=== PATIENT | male | born 1940 | race Caucasian/White ===

== ENCOUNTER → 2020-12-01 | Outpatient (CLI) | payer MEDICARE, OTHER ==
[~2020-12-01] MED LIST: ATOR1TAB19 PO; BISO5TAB14 PO; CALC1CAP31 PO; CINA30TA4 PO; DILT240C28 PO; ISOVUE-300 61% 50ML VIAL As Ordered ONE; LIDOCAINE 1% MDV 20ML VIAL As Ordered ONE; LOSA100T50 PO; MIDAZOLAM INJ 2MG/2ML VIAL (J2250 PER 1MG) As Ordered ONE; RENATAB6 PO; WARF-18 PO; fentaNYL 100 MCG/2 ML INJECTION (J3010) As Ordered ONE
--- NOTE | 2020-12-01 13:44 | ROOPDOC ---
[facility] Report Of Operation Report of Operation DATE OF PROCEDURE: 12/01/20 PREPROCEDURE DIAGNOSES: End-stage renal disease with left Valentín fistula and increased swelling left upper extremity POSTPROCEDURE DIAGNOSES: Same PROCEDURE: 1. Ultrasound-guided access left cephalic vein 2. Left upper extremity fistulogram and central venogram 3. Angioplasty proximal left cephalic vein with 8 x 20 cutting balloon and 9 x 80 [place] balloon 4. Completion venogram SURGEON: Efe Garcia MD ANESTHESIA: Local anesthesia 5 mL lidocaine. Moderate intravenous conscious sedation was administered by Dr. Garcia. The patient was independent we monitored by registered nurse assigned to the Department of radiology using automated blood pressure, EKG, and pulse oximetry. The detailed sedation record is permanently stored in the hospital information system. The following is a brief sedation record: Start time 13:01, stop time 13:26, Versed 1 mg IV, fentanyl 50 g IV. INDICATION FOR PROCEDURE: This a very pleasant 80-year-old gentleman with end- stage renal disease on hemodialysis and a left Valentín fistula who has had increased swelling in his left upper extremity and increased pulsatility in his fistula. Risks benefits and alternatives to a fistulogram of left upper extremity and potential intervention were explained to the patient. He is agreeable to proceed. Informed consent was obtained. INTERPRETATION: 1. The AV anastomosis is widely patent on ultrasound, please see images. We examined the cephalic vein over the forearm with ultrasound. 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 2. Left upper extremity fistulogram reveals good inflow through the cephalic vein and the basilic vein at the antecubital through the upper arm. The cephalic vein in the upper arm is tortuous but widely patent. No significant stenoses is noted. No stenoses noted in the basilic vein axillary vein runoff either. At the proximal cephalic vein at the shoulder, there is a focal 95% stenosis, and some moderate 20-30% stenoses surrounding this. There is then a branch point proximal to the junction with the subclavian vein and both of the outflow cephalic veins are patent. There is good flow through the subclavian vein and no stenoses noted at the thoracic outlet. The innominate vein is widely patent with good outflow back to the heart. 3. After angioplasty of the left cephalic vein proximally at the area of heavy stenosis repeatedly with a cutting balloon, there is a marked improvement in flow, no extravasation embolization noted. There is however, diffuse spasm in the proximal cephalic vein with mild stenoses noted throughout the shoulder aspect of the proximal vein. 4. After angioplasty of the left cephalic vein proximally with a 8 x 200 [place] balloon were three-minute inflation, there is definitely an improvement in flow, but still some residual stenoses noted and some pulsatility residual in the vein on the forearm. 5. Repeat angioplasty with a 9 x 80 [place] balloon across the proximal cephalic vein results in widely patent inflow, no significant residual stenosis, no embolization or extravasation, and a marked improvement in thrill in the fistula. REPORT OF OPERATION: The patient was brought to the angiographic suite in stable condition. His left upper extremity was prepped and draped in a sterile fashion. A timeout was performed. Local anesthesia was ministered to the skin and subcutaneous tissue over the cephalic vein. Ultrasound was used to examine the AV anastomosis and it was noted to be widely patent. We also used ultrasound to examine the cephalic vein throughout the forearm and no areas of stenoses were noted. There was a good thrill proximal to the AV anastomosis, but more pulsatility towards the antecubital crease in the aneurysmal segments of frequent access in the cephalic vein. We then decided to access more proximally suspecting a more central stenosis resulting in the patient's arm swelling and pulsatility. In case we needed a cutting balloon, we needed to be more proximal so the balloon could reach the area of stenosis. We therefore reanesthetized with local anesthesia near the antecubital crease over the cephalic vein. Ultrasound was used to access the vein and a wire was passed through this access under fluoroscopic guidance and a 4 [place] sheath was placed and flushed with saline. A fistulogram and central venogram were performed, please see interpretation above. We then exchanged the sheath over Glidewire for 7 [place] sheath and flushed the sheath with saline. The wire was exchanged for 018 Glidewire advantage across into the central system under fluoroscopic guidance. We past in December 15 cutting balloon over the wire and angioplasty multiple times and areas of heavy stenosis in the proximal cephalic vein, please see interpretation above. We then exchange this for an 8 x 200 [place] balloon which we used angioplasty from the mid subclavian vein through the proximal cephalic vein to the shoulder. Three-minute inflation was performed and following this there was improvement in flow, but still some spasm in residual stenosis. After exchanging for a 9 x 80 [place] balloon, a three-minute inflation was done across the proximal cephalic vein and following this there is a marked improvement in flow, no significant residual stenosis, no extravasation or embolization, and a dramatic improvement in thrill in the fistula. We are hopeful that improvement is his outflow issue will improve the patient's left arm swelling. We anesthetized the skin around the sheath and a [id number] Prolene suture was placed and secured as the sheath was removed. Sterile dressings were applied and pressure was held for a few minutes for good hemostasis the patient was taken to recovery in stable condition. He tolerated the procedure and his sedation well. ESTIMATED BLOOD LOSS: Approximately 5 mL. COMPLICATIONS: None. PLAN: It is okay to use the AV fistula for dialysis. It is okay to resume home diet and medications. I encouraged the patient to periodically elevate his left upper extremity to help with venous return and diminished swelling. We appreciate the opportunity to participate in the care of this patient. EFE GARCIA MD Dec 01, 2020 13:44
[2020-12-01 14:00] VITALS: BP 155/88
== END ==
LOC: M IRPRO 11:45
PROVIDERS: ATTEND Surgery Vascular Surgery
DX: T82.590A Other mechanical complication of surgically created arteriovenous fistula, initial encounter (principal); N18.6 End stage renal disease; X58.XXXA Exposure to other specified factors, initial encounter
CPT/HCPCS: 36902; 99152; 99153; C1725; C1729; C1769; C1894; J1644; J2250; J3010; Q9967

== ENCOUNTER → 2021-07-06 | Outpatient (CLI) | payer MEDICARE, OTHER ==
[~2021-07-06] MED LIST changes: +ceFAZolin 1GM VIAL (J0690 PER 500MG) As Ordered ONE; +ceFAZolin SOD 2 GM in IV 1 EA IV ONE
[2021-07-06 12:47] LABS: HEMATOCRIT 35.2 % (42.0-52.0); HEMOGLOBIN 11.9 g/dl (13.5-17.5); MEAN CORPUSCULAR HEMOGLOBIN 36.8 pg (27.0-33.0); MEAN CORPUSCULAR HGB CONC 33.8 g/dl (32.0-36.5); PLATELET COUNT, AUTOMATED 154 10^3/uL (150-450); RED BLOOD COUNT 3.23 10^6/uL (4.30-6.10); WHITE BLOOD COUNT 5.2 10^3/uL (4.0-10.0)
[2021-07-06 13:18] LABS: CALCIUM LEVEL 9.7 MG/DL (8.8-10.2); CREATININE FOR GFR 5.88 MG/DL (0.70-1.30); GLOMERULAR FILTRATION RATE 9.9 (>35)
[2021-07-06 14:06] LABS: INR 2.3; PROTHROMBIN TIME 25.7 SECONDS (12.7-14.5)
--- NOTE | 2021-07-06 14:22 | ROOPDOC ---
[facility] Report Of Operation Report of Operation DATE OF PROCEDURE: 07/06/21 PREPROCEDURE DIAGNOSES: End-stage renal disease, on hemodialysis through a left radiocephalic AV fistula, recurrent left arm swelling POSTPROCEDURE DIAGNOSES: End-stage renal disease, on hemodialysis through a left radiocephalic AV fistula, recurrent left arm swelling PROCEDURE PERFORMED: Left arm fistulogram, balloon angioplasty of the left cephalic vein arch stenosis-using 8 x 20 mm Cutting Balloon, followed by 9 x 80 mm [place] regular balloon SURGEON: Chelsi Murillo MD PIZZA CHEF: None ANESTHESIA: Local ESTIMATED BLOOD LOSS: Approximately 5 mL. COMPLICATIONS: None FINDINGS: Patent left radiocephalic AV fistula, which is tortuous. Primary venous outflow is through the cephalic vein in the upper arm. There is recurrent focal tight/99% stenosis, of the cephalic vein arch, just before its confluence with the axillary vein. The central veins and superior vena cava are patent. Successful balloon angioplasty of the stenosis, with no residual stenosis. SPECIMENS REMOVED: None PROCEDURE NOTE: Indication for the procedure: The patient is an 80-year-old gentleman, who is on hemodialysis through left radiocephalic AV fistula. He had previous balloon angioplasty of the left cephalic vein arch stenosis on 12/01/2020, by Dr. Garcia. He developed recurrent swelling of the left upper extremity, and hence the above-mentioned procedure is being performed. Informed consent was obtained from the patient, after explaining the risks and complications of the procedure, which include but are not limited to bleeding, i nfection, failure of the fistula, recurrent stenosis and recurrent arm swelling etc. DESCRIPTION OF PROCEDURE: The patient was placed supine on the angiographic table. The left upper extremity was cleaned and draped in sterile manner. A timeout was performed. He received 2 g Ancef intravenously as preoperative antibiotic prophylaxis. Under ultrasound guidance, after administering local anesthesia with 1% lidocaine, the radiocephalic AV fistula was accessed, in the proximal forearm level with a micropuncture needle which was exchanged for micropuncture sheath. Initial fistulogram was performed through the sheath. The arterial anastomosis was noted to be patent on ultrasound and hence was not imaged further. Findings as mentioned above. It was decided to treat the recurrent stenosis. The sheath was exchanged to a 7 [place] sheath over a 0.081 inch advantage Glidewire. Initially the 8 x 20 mm cutting balloon was used to balloon angioplasty the stenosis, followed by balloon angioplasty with the 9 mm [place] balloon. Post angioplasty imaging revealed complete resolution of the stenosis. The sheath was removed, and the sheath access site was secured with 3-0 Vicryl suture. Dry dressing was placed. The patient tolerated the procedure well and was hemodynamically stable. Chelsi Murillo MD Jul 06, 2021 14:22
[2021-07-06 14:25] VITALS: BP 159/79
== END ==
LOC: M IRPRO 11:56
PROVIDERS: ATTEND Surgery Vascular Surgery
DX: T82.858A Stenosis of other vascular prosthetic devices, implants and grafts, initial encounter (principal); N18.6 End stage renal disease; I12.0 Hypertensive chronic kidney disease with stage 5 chronic kidney disease or end stage renal disease; R22.32 Localized swelling, mass and lump, left upper limb; Z79.01 Long term (current) use of anticoagulants; Z87.891 Personal history of nicotine dependence; Z99.2 Dependence on renal dialysis
CPT/HCPCS: 36902; 80048; 85027; 85610; 86850; 86900; 86901; 99152; 99153; C1725; C1729; C1894; J0690; J1644; Q9967

== ENCOUNTER → 2022-11-03 | Outpatient (CLI) | payer MEDICARE, OTHER ==
[~2022-11-03] MED LIST changes: -ISOVUE-300 61% 50ML VIAL As Ordered ONE; -LIDOCAINE 1% MDV 20ML VIAL As Ordered ONE; +LOSA100T45 PO; -LOSA100T50 PO; -MIDAZOLAM INJ 2MG/2ML VIAL (J2250 PER 1MG) As Ordered ONE; -ceFAZolin 1GM VIAL (J0690 PER 500MG) As Ordered ONE; -ceFAZolin SOD 2 GM in IV 1 EA IV ONE; -fentaNYL 100 MCG/2 ML INJECTION (J3010) As Ordered ONE
== END ==
LOC: M LABSMTC 10:43
PROVIDERS: ATTEND Anesthesiology
DX: Z01.812 Encounter for preprocedural laboratory examination (principal); Z20.822 Contact with and (suspected) exposure to COVID-19

== ENCOUNTER → 2022-11-22 | Outpatient (CLI) | payer MEDICARE, OTHER ==
[~2022-11-22] MED LIST changes: +ISOVUE-300 61% 100ML VIAL As Ordered ONE; +LIDOCAINE 1% MDV 20ML VIAL As Ordered ONE; +MIDAZOLAM INJ 2MG/2ML VIAL As Ordered ONE; +ceFAZolin 2 GM/D5W 50 ML IV BAG As Ordered ONE; +fentaNYL 100 MCG/2 ML INJECTION As Ordered ONE
[2022-11-22 12:44] LABS: HEMOGLOBIN 12.2 g/dl (13.5-17.5); MEAN CORPUSCULAR HGB CONC 34.9 g/dl (32.0-36.5); PLATELET COUNT, AUTOMATED 169 10^3/uL (150-450); RED BLOOD COUNT 3.21 10^6/uL (4.30-6.10); WHITE BLOOD COUNT 5.6 10^3/uL (4.0-10.0)
[2022-11-22 13:01] LABS: INR 1.48; PROTHROMBIN TIME 18.2 SECONDS (12.5-14.5)
[2022-11-22 14:01] LABS: CALCIUM LEVEL 8.9 MG/DL (8.3-10.6); CREATININE FOR GFR 5.04 MG/DL (0.70-1.30); GLOMERULAR FILTRATION RATE 11.8 (>35); MAGNESIUM LEVEL 1.9 MG/DL (1.8-2.4); POTASSIUM SERUM 4.1 MMOL/L (3.5-5.1)
[2022-11-22 16:16] VITALS: BP 188/81
== END ==
LOC: M IRPRO 12:00
PROVIDERS: ATTEND Surgery Vascular Surgery
DX: N18.6 End stage renal disease (principal)
CPT/HCPCS: 36902; 80048; 83735; 85027; 85610; 86850; 86900; 86901; 87635; 99152; 99153; C1725; C1769; C1887; C1894; J0690; J2250; J3010; Q9967

== ENCOUNTER 2024-02-11 14:56 | Inpatient (IN) | payer MEDICARE, OTHER ==
[~2024-02-11] VITALS: Ht 177.8 cm; Wt 89.3 kg
[~2024-02-11 14:56] MED LIST changes: -ISOVUE-300 61% 100ML VIAL As Ordered ONE; -LIDOCAINE 1% MDV 20ML VIAL As Ordered ONE; -LOSA100T45 PO; +LOSA100T46 PO; -MIDAZOLAM INJ 2MG/2ML VIAL As Ordered ONE; -ceFAZolin 2 GM/D5W 50 ML IV BAG As Ordered ONE; -fentaNYL 100 MCG/2 ML INJECTION As Ordered ONE
[2024-02-11 15:35] LABS: BASO % 0.4 % (0.0-1.0); EOS # 0.1 10^3/uL (0.0-0.5); EOS % 1.2 % (0.0-3.0); HEMOGLOBIN 10.9 g/dl (13.5-17.5); LYMPH # 0.6 10^3/uL (1.5-5.0); LYMPH % 11.3 % (24.0-44.0); MEAN CORPUSCULAR HEMOGLOBIN 34.1 pg (27.0-33.0); MEAN CORPUSCULAR VOLUME 103.1 fl (80.0-96.0); MONO # 0.7 10^3/uL (0.0-0.8); MONO % 13.4 % (2.0-8.0); NEUTROPHILS # 3.6 10^3/uL (1.5-8.5); NEUTROPHILS % 73.5 % (36.0-66.0); PLATELET COUNT, AUTOMATED 112 10^3/uL (150-450); WHITE BLOOD COUNT 4.9 10^3/uL (4.0-10.0)
[2024-02-11 15:50] LABS: INR 1.21
[2024-02-11 17:27] LABS: ETHYL ALCOHOL (ETHANOL) < 0.003 % (0.000-0.010)
[2024-02-11 17:32] LABS: ALBUMIN 2.6 G/DL (3.2-5.2); ALKALINE PHOSPHATASE 78 U/L (46-116); ALT/SGPT 14 U/L (7.0-40); AST/SGOT 17 U/L (<34); BILIRUBIN,DIRECT 0.4 MG/DL (<0.4); BILIRUBIN,TOTAL 0.8 MG/DL (0.3-1.2); BLOOD UREA NITROGEN 31 MG/DL (9-23); CARBON DIOXIDE LEVEL 34 MMOL/L (20-31); CHLORIDE LEVEL 96 MMOL/L (98-107); CK-MB VALUE MASS < 1.0 NG/ML (<3.6); CPK CREATINE PHOSPHOKINASE 41 U/L (46-171); CREATININE FOR GFR 5.91 MG/DL (0.70-1.30); GLOMERULAR FILTRATION RATE 9.8 (>35); GLUCOSE, FASTING 100 MG/DL (74-106); MB/CK RELATIVE INDEX 2.43 (< OR =4); POTASSIUM SERUM 3.4 MMOL/L (3.5-5.1); SODIUM LEVEL 134 MMOL/L (136-145); THYROID STIMULATING HORMONE 5.573 uIU/ML (0.55-4.78); TOTAL PROTEIN 6.2 G/DL (5.7-8.2)
[2024-02-11] MEDS: POTASSIUM CHLORIDE 10MEQ SR TABLET PO ONE (19:40)
[2024-02-11] MEDS ORDERED: SEVE800T3 PO (20:07)
[2024-02-11] MEDS ORDERED: ELIQ2.5T PO (20:07)
[2024-02-11] MEDS ORDERED: ATOR40TA75 PO (20:07)
[2024-02-11] MEDS ORDERED: LIDO1ADH10 TOP (20:07)
[2024-02-11] MEDS ORDERED: PANT40TA29 PO (20:07)
[2024-02-11] MEDS ORDERED: FOLI1TAB11 PO (20:07)
[2024-02-11] MEDS ORDERED: MIDO10TA PO (20:07)
[2024-02-11] MEDS ORDERED: ASPI81CH48 PO (20:14)
[2024-02-11] MEDS ORDERED: B-1100TA2 PO (20:14)
[2024-02-11] MEDS ORDERED: TIMO0.5S20 OD (20:14)
[2024-02-11] MEDS ORDERED: BRIM0.2S13 OD (20:14)
[2024-02-11] MEDS ORDERED: SENN-83 PO (20:14)
[2024-02-11] MEDS ORDERED: RENATAB5 PO (20:15)
[2024-02-11] MEDS ORDERED: HOME MED LIST COMPLETE! XX SCH (20:20)
[2024-02-11] MEDS ORDERED: cefTRIAXone SOD 1GM VIAL IM SCH (20:45)
[2024-02-11] MEDS: SENNA 8.6 MG TAB (SENOKOT) PO SCH (21:00)
[2024-02-11] MEDS: DOCUSATE SODIUM 100MG CAPSULE PO SCH (21:00)
[2024-02-11] MEDS: cefTRIAXone SOD 1 GM in D5W MINI-BAG PLUS 50 ML IV SCH (22:00)
[2024-02-11] MEDS: ATORVASTATIN 20 MG TAB PO SCH (23:21)
[2024-02-11] MEDS: APIXABAN 2.5 MG TAB (ELIQUIS) PO SCH (23:21)
[2024-02-11 23:35] VITALS: BP 122/79; TEMP 97.3; O2SAT 98
[2024-02-12] MEDS: TIMOLOL MALEATE 0.5% OPHTH SOLN 5 ML OD SCH (01:18)
[2024-02-12 04:00] VITALS: BP 121/75; TEMP 97.7; O2SAT 95
[2024-02-12] MEDS ORDERED: SODIUM CHLORIDE 0.9% 1000ML IV PRN (06:15)
[2024-02-12] MEDS ORDERED: HEPARIN 1,000UNITS/ML 10ML VIAL (FOR RADIOLOGY & DIALYSIS ONLY) XX SCH (06:15)
[2024-02-12] MEDS ORDERED: LIDOCAINE 1% SDV 5ML VIAL SC PRN (06:15)
[2024-02-12] MEDS: (RENVELA) SEVELAMER **CARBONate** 800 MG TAB PO SCH (06:28)
[2024-02-12] MEDS: PANTOPRAZOLE 40MG TAB (PROTONIX) PO SCH (07:35)
[2024-02-12] MEDS: ASPIRIN 81MG CHEW TABLET PO SCH (07:36)
[2024-02-12] MEDS: LOSARTAN 50MG TABLET PO SCH (07:37)
[2024-02-12] MEDS: FOLIC ACID 1MG TAB PO SCH (07:37)
[2024-02-12] MEDS: THIAMINE 100 MG TAB PO SCH (07:38)
[2024-02-12] MEDS: dilTIAZem 120MG **CD** CAPSULE PO SCH (07:38)
[2024-02-12] MEDS: HEPARIN 1,000UNITS/ML 10ML VIAL (FOR RADIOLOGY & DIALYSIS ONLY) IV PRN (09:15)
[2024-02-12 09:26] LABS: HEMOGLOBIN 10.5 g/dl (13.5-17.5); MEAN CORPUSCULAR HEMOGLOBIN 33.2 pg (27.0-33.0); MEAN CORPUSCULAR HGB CONC 32.8 g/dl (32.0-36.5); MEAN CORPUSCULAR VOLUME 101.3 fl (80.0-96.0); PLATELET COUNT, AUTOMATED 106 10^3/uL (150-450); RED BLOOD COUNT 3.16 10^6/uL (4.30-6.10); WHITE BLOOD COUNT 4.3 10^3/uL (4.0-10.0)
[2024-02-12 09:50] LABS: ALBUMIN 2.3 G/DL (3.2-5.2); BILIRUBIN,TOTAL 0.8 MG/DL (0.3-1.2); BLOOD UREA NITROGEN 35 MG/DL (9-23); CALCIUM LEVEL 9.1 MG/DL (8.3-10.6); CARBON DIOXIDE LEVEL 31 MMOL/L (20-31); CHLORIDE LEVEL 99 MMOL/L (98-107); CREATININE FOR GFR 6.61 MG/DL (0.70-1.30); GLOMERULAR FILTRATION RATE 8.6 (>35); GLUCOSE, FASTING 108 MG/DL (74-106); PHOSPHORUS LEVEL 2.7 MG/DL (2.4-5.1); POTASSIUM SERUM 3.7 MMOL/L (3.5-5.1); SODIUM LEVEL 135 MMOL/L (136-145); TOTAL PROTEIN 5.8 G/DL (5.7-8.2)
[2024-02-12 10:26] LABS: HEPATITIS B CORE ANTIBODY IGM NEGATIVE (NEGATIVE); HEPATITIS B SURFACE ANTIBODY POSITIVE (POSITIVE); HEPATITIS B SURFACE ANTIGEN NEGATIVE (NEGATIVE); HEPATITIS C VIRUS ABY INDEX 0.02 INDEX (<0.8)
[2024-02-12 13:46] VITALS: BP 114/73; TEMP 97.5; O2SAT 92
[2024-02-12 20:00] VITALS: BP 115/72; TEMP 97.7; O2SAT 92; O2SAT 94
[2024-02-13 04:00] VITALS: BP 105/65; TEMP 97.3; O2SAT 96
[2024-02-13 12:00] VITALS: BP 105/60; TEMP 97; O2SAT 100
[2024-02-13 20:00] VITALS: BP_SYST 102; BP_SYST 105; BP_DIAS 56; BP_DIAS 65; TEMP 97.3; TEMP 97.7; O2SAT 95; O2SAT 96
[2024-02-14 04:00] VITALS: BP 104/57; TEMP 97.3; O2SAT 94
[2024-02-14] MEDS ORDERED: SODIUM CHLORIDE 0.9% 1000ML IV PRN (06:45)
[2024-02-14] MEDS ORDERED: LIDOCAINE 1% SDV 5ML VIAL SC PRN (06:45)
[2024-02-14] MEDS ORDERED: HEPARIN 1,000UNITS/ML 10ML VIAL (FOR RADIOLOGY & DIALYSIS ONLY) IV PRN (06:45)
[2024-02-14] MEDS: HEPARIN 1,000UNITS/ML 10ML VIAL (FOR RADIOLOGY & DIALYSIS ONLY) XX SCH (10:01)
[2024-02-14 12:00] VITALS: BP 103/60; TEMP 97.5; O2SAT 94
[2024-02-14] MEDS: ACETAMINOPHEN TAB 650MG DOSE (2X325MG) PO PRN (15:07)
[2024-02-14 19:57] VITALS: BP 104/57; TEMP 97.9; O2SAT 98
[2024-02-14 20:30] VITALS: BP 119/64; TEMP 97.7; O2SAT 96
[2024-02-14] MEDS: ANALGESIC BALM CRM 3OZ TOP PRN (21:22)
[2024-02-15 05:09] VITALS: BP 115/68; TEMP 97.7; O2SAT 96
[2024-02-15 05:17] VITALS: BP 115/68; TEMP 97.7; O2SAT 96
[2024-02-15 12:00] VITALS: BP 109/60; TEMP 97.7; O2SAT 96
[2024-02-15 19:43] VITALS: BP 105/59; TEMP 97.7; O2SAT 97
[2024-02-16 04:00] VITALS: BP 108/56; TEMP 97.5; O2SAT 95
[2024-02-16] MEDS ORDERED: HEPARIN 1,000UNITS/ML 10ML VIAL (FOR RADIOLOGY & DIALYSIS ONLY) IV PRN (05:15)
[2024-02-16] MEDS ORDERED: SODIUM CHLORIDE 0.9% 1000ML IV PRN (05:15)
[2024-02-16] MEDS ORDERED: LIDOCAINE 1% SDV 5ML VIAL SC PRN (05:15)
[2024-02-16] MEDS: HEPARIN 1,000UNITS/ML 10ML VIAL (FOR RADIOLOGY & DIALYSIS ONLY) XX SCH (08:58)
[2024-02-16 13:13] VITALS: BP 103/56
[2024-02-16 20:37] VITALS: BP 86/54; TEMP 97.7; O2SAT 96
[2024-02-16 23:06] VITALS: BP 103/57
[2024-02-17 03:51] VITALS: BP 88/54; TEMP 97.5; O2SAT 97
[2024-02-17 05:53] VITALS: BP 94/53
[2024-02-17 12:00] VITALS: BP 88/52; TEMP 97.3; O2SAT 96
[2024-02-17 19:37] VITALS: BP 114/63; TEMP 97.7; O2SAT 95
[2024-02-18 03:38] VITALS: BP 112/61; TEMP 97.9; O2SAT 97
[2024-02-18 07:45] VITALS: BP 97/60; TEMP 97.3
[2024-02-18 11:38] VITALS: BP 105/51; TEMP 97.3; O2SAT 96
[2024-02-18] MEDS: MIDODRINE 5 MG TAB PO SCH (11:46)
[2024-02-18 15:52] VITALS: BP 107/55; TEMP 97.5; O2SAT 97
[2024-02-18 20:45] VITALS: BP 108/56; TEMP 97.7; O2SAT 95
[2024-02-19 04:17] VITALS: BP 107/57; TEMP 97.3; O2SAT 92
[2024-02-19] MEDS ORDERED: HEPARIN 1,000UNITS/ML 10ML VIAL (FOR RADIOLOGY & DIALYSIS ONLY) XX SCH (06:00)
[2024-02-19] MEDS ORDERED: HEPARIN 1,000UNITS/ML 10ML VIAL (FOR RADIOLOGY & DIALYSIS ONLY) IV PRN (06:00)
[2024-02-19] MEDS ORDERED: SODIUM CHLORIDE 0.9% 1000ML IV PRN (06:00)
[2024-02-19] MEDS ORDERED: LIDOCAINE 1% SDV 5ML VIAL SC PRN (06:00)
[2024-02-19 06:07] LABS: HEMATOCRIT 34.9 % (42.0-52.0); MEAN CORPUSCULAR HGB CONC 31.5 g/dl (32.0-36.5); MEAN CORPUSCULAR VOLUME 104.8 fl (80.0-96.0); PLATELET COUNT, AUTOMATED 136 10^3/uL (150-450); RED BLOOD COUNT 3.33 10^6/uL (4.30-6.10); WHITE BLOOD COUNT 5.1 10^3/uL (4.0-10.0)
[2024-02-19 06:30] LABS: ALBUMIN 2.3 G/DL (3.2-5.2); BILIRUBIN,TOTAL 0.5 MG/DL (0.3-1.2); CALCIUM LEVEL 9.1 MG/DL (8.3-10.6); CREATININE FOR GFR 6.45 MG/DL (0.70-1.30); GLOMERULAR FILTRATION RATE 8.8 (>35); POTASSIUM SERUM 4.2 MMOL/L (3.5-5.1); TOTAL PROTEIN 6.2 G/DL (5.7-8.2)
[2024-02-19 12:00] VITALS: BP 95/52; TEMP 97.7; O2SAT 92
[2024-02-19 12:23] VITALS: BP 111/54
[2024-02-19] MEDS ORDERED: MIDO5TA PO (13:35)
[2024-02-19 16:02] VITALS: BP 94/54
[2024-02-19 20:00] VITALS: BP 99/56; TEMP 97.7; O2SAT 96
[2024-02-20 04:00] VITALS: BP 100/56; TEMP 97.5; O2SAT 96
== END 2024-02-20 09:00 | disposition home health service (06) | DRG 70 ==
LOC: M ED 14:56 → EDBD 14:56 → M ED INP 19:58 → M MSPAV 23:33
PROVIDERS: ADMIT Preventive Medicine Undersea and Hyperbaric Medicine; ATTEND Student in an Organized Health Care Education/Training Program
PROC: 5A1D70Z Performance of Urinary Filtration, Intermittent, Less than 6 Hours Per Day (ICD-10-PCS; principal; 2024-02-12)
DX: G93.40 Encephalopathy, unspecified (principal); N18.6 End stage renal disease; E87.1 Hypo-osmolality and hyponatremia; I12.0 Hypertensive chronic kidney disease with stage 5 chronic kidney disease or end stage renal disease; I27.82 Chronic pulmonary embolism; N25.81 Secondary hyperparathyroidism of renal origin; D64.9 Anemia, unspecified; R54 Age-related physical debility; I95.9 Hypotension, unspecified; Z79.82 Long term (current) use of aspirin; Z79.899 Other long term (current) drug therapy; I48.0 Paroxysmal atrial fibrillation; E66.9 Obesity, unspecified; Z87.891 Personal history of nicotine dependence